=== PATIENT | female | born 1950 | race Two or more races ===

== ENCOUNTER 2016-08-25 17:25 | Emergency (ER) | payer MEDICARE, MEDICAID ==
[~2016-08-25] VITALS: Ht 167.6 cm; Wt 108.9 kg
[2016-08-25 18:12] LABS: Basophils # (auto) 0 uL; Basophils % (auto) 0.5 % (0.0-2.0); Eosinophils # (auto) 0.3 uL; Eosinophils % (auto) 4.3 % (0.0-7.0); Hematocrit 46.3 % (36.0-46.0); Hemoglobin 15.6 g/dL (12.2-16.2); Lymphocytes # (auto) 1.3 uL; Lymphocytes % (auto) 16.4 % (10.0-50.0); Mean Corpuscular Hemoglobin 30.4 pg (28.0-32.0); Mean Corpuscular Hgb Conc. 33.7 g/dL (32.0-36.0); Mean Corpuscular Volume 90.2 fL (80.0-100.0); Mean Platelet Volume 7.7 fL (7.4-10.4); Monocytes # (auto) 0.7 uL; Monocytes % (auto) 9.1 % (0.0-12.0); Neutrophils # (auto) 5.5 uL; Neutrophils % (auto) 69.7 % (37.0-80.0); Platelet Count (auto) 217 10^3/uL (140-450)
[2016-08-25 18:27] LABS: Partial Thromboplastin Time 28.2 sec (22.64-33.71)
[2016-08-25 18:36] LABS: Albumin 3.8 g/dL (3.4-5.0); Alkaline Phosphatase 135 U/L (45-117); Anion Gap 8 (5-15); Aspartate Aminotransferase 23 U/L (15-37); BUN/Creatinine Ratio 22.3; Bilirubin, Total 0.4 mg/dL (0.2-1.0); Blood Urea Nitrogen 21 mg/dL (7-18); Calcium 9.4 mg/dL (8.5-10.1); Carbon Dioxide 26 mmol/L (21-32); Chloride 108 mmol/L (98-107); GFR African American 77 mL/min; GFR Non-African American 64 mL/min; Glucose 183 mg/dL (74-106); Magnesium 2.3 mg/dL (1.6-2.6); Potassium 4.6 mmol/L (3.5-5.1); Sodium 142 mmol/L (136-145); Total Protein 7.9 g/dL (6.4-8.2)
[2016-08-25 18:50] LABS: INR 1.45 (0.9-1.15); Prothrombin Time 15.7 sec (9.37-12.3)
[2016-08-25] MEDS ORDERED: ALPRAZolam 0.5 MG TAB PO ONE (19:15)
[2016-08-25] MEDS ORDERED: cloNIDine HCL 0.1 MG TAB PO ONE (20:00)
[2016-08-25 20:04] VITALS: BP 174/74
== END 2016-08-25 20:44 | disposition home or self-care (01) ==
LOC: ER 17:25
DX: F41.0 Panic disorder [episodic paroxysmal anxiety] (principal); E66.01 Morbid (severe) obesity due to excess calories; J45.909 Unspecified asthma, uncomplicated; I12.9 Hypertensive chronic kidney disease with stage 1 through stage 4 chronic kidney disease, or unspecified chronic kidney disease; E11.9 Type 2 diabetes mellitus without complications; K21.9 Gastro-esophageal reflux disease without esophagitis; E78.5 Hyperlipidemia, unspecified; N18.9 Chronic kidney disease, unspecified; Z68.38 Body mass index [BMI] 38.0-38.9, adult; Z88.8 Allergy status to other drugs, medicaments and biological substances; Z90.710 Acquired absence of both cervix and uterus; Z90.89 Acquired absence of other organs
CPT/HCPCS: 36415; 71010; 80053; 83735; 84484; 85025; 85610; 85730; 93005; 94761

== ENCOUNTER 2016-08-27 09:12 | Emergency (ER) | payer MEDICARE, MEDICAID ==
[~2016-08-27] VITALS: Ht 172.7 cm; Wt 90.7 kg
[2016-08-27] MEDS ORDERED: HYDROcodone-ACET 5/325MG TAB PO ONE (10:00)
[2016-08-27] MEDS ORDERED: ASPirin 81 mg TAB PO ONE (10:00)
[2016-08-27 10:45] LABS: Albumin 3.3 g/dL (3.4-5.0); Anion Gap 10 (5-15); Aspartate Aminotransferase 15 U/L (15-37); BUN/Creatinine Ratio 24.1; Blood Urea Nitrogen 20 mg/dL (7-18); Calcium 8.3 mg/dL (8.5-10.1); Carbon Dioxide 24 mmol/L (21-32); Chloride 110 mmol/L (98-107); GFR African American 89 mL/min; GFR Non-African American 73 mL/min; Glucose 158 mg/dL (74-106); Potassium 4.3 mmol/L (3.5-5.1); Sodium 144 mmol/L (136-145)
[2016-08-27 10:50] LABS: Alkaline Phosphatase 110 U/L (45-117); Bilirubin, Total 0.4 mg/dL (0.2-1.0); Total Protein 6.6 g/dL (6.4-8.2)
[2016-08-27 10:53] LABS: Basophils # (auto) 0 uL; Basophils % (auto) 0.6 % (0.0-2.0); Eosinophils # (auto) 0.3 uL; Eosinophils % (auto) 4.2 % (0.0-7.0); Hematocrit 43.2 % (36.0-46.0); Hemoglobin 14.4 g/dL (12.2-16.2); Lymphocytes # (auto) 1.2 uL; Lymphocytes % (auto) 15.3 % (10.0-50.0); Mean Corpuscular Hemoglobin 30.3 pg (28.0-32.0); Mean Corpuscular Hgb Conc. 33.3 g/dL (32.0-36.0); Mean Corpuscular Volume 90.9 fL (80.0-100.0); Mean Platelet Volume 7.8 fL (7.4-10.4); Monocytes # (auto) 0.6 uL; Monocytes % (auto) 8.2 % (0.0-12.0); Neutrophils # (auto) 5.5 uL; Neutrophils % (auto) 71.7 % (37.0-80.0); Platelet Count (auto) 197 10^3/uL (140-450); Red Cell Distribution Width 14.1 % (11.6-16.0); White Blood Cell 7.6 10^3/uL (4.4-10.8)
[2016-08-27] MEDS ORDERED: LORazepam 0.5 MG TAB ONE (11:38)
[2016-08-27] MEDS ORDERED: LORazepam 0.5 MG TAB PO ONE (12:30)
[2016-08-27 13:18] VITALS: BP 143/88
== END 2016-08-27 13:20 | disposition home or self-care (01) ==
LOC: EDBD 09:12 → ER 09:19
DX: R07.89 Other chest pain (principal); I12.9 Hypertensive chronic kidney disease with stage 1 through stage 4 chronic kidney disease, or unspecified chronic kidney disease; N18.9 Chronic kidney disease, unspecified; E78.5 Hyperlipidemia, unspecified; M25.562 Pain in left knee; J45.909 Unspecified asthma, uncomplicated; Z90.49 Acquired absence of other specified parts of digestive tract; Z90.89 Acquired absence of other organs; Z85.43 Personal history of malignant neoplasm of ovary; Z88.6 Allergy status to analgesic agent
CPT/HCPCS: 36415; 71010; 73562; 80053; 84484; 85025; 93005; 94761

== ENCOUNTER 2016-09-17 01:14 | Emergency (ER) | payer MEDICARE, MEDICAID ==
[~2016-09-17] VITALS: Ht 167.6 cm; Wt 108.9 kg
[2016-09-17] MEDS ORDERED: LIDOCAINE 2%HCL (LOCAL ANESTH.) INJ 20ML MDV ONE (10:33)
[2016-09-17] MEDS ORDERED: TETANUS-DIPTH-ACEL PERTUSSIS 0.5ML SYRG IM ONE (11:15)
[2016-09-17] MEDS ORDERED: cefTRIAXone W LIDOCAINE 1 GM IM IM ONE (11:15)
[2016-09-17 11:30] VITALS: BP 155/92
== END 2016-09-17 11:09 | disposition home or self-care (01) ==
LOC: EDBD 01:14 → ER 01:21
DX: S01.312A Laceration without foreign body of left ear, initial encounter (principal); J45.909 Unspecified asthma, uncomplicated; E11.22 Type 2 diabetes mellitus with diabetic chronic kidney disease; I12.9 Hypertensive chronic kidney disease with stage 1 through stage 4 chronic kidney disease, or unspecified chronic kidney disease; N18.9 Chronic kidney disease, unspecified; K21.9 Gastro-esophageal reflux disease without esophagitis; E78.5 Hyperlipidemia, unspecified; Z86.711 Personal history of pulmonary embolism; W01.0XXA Fall on same level from slipping, tripping and stumbling without subsequent striking against object, initial encounter; Y93.89 Activity, other specified; Y99.8 Other external cause status; Y92.098 Other place in other non-institutional residence as the place of occurrence of the external cause; Z85.9 Personal history of malignant neoplasm, unspecified; Z23 Encounter for immunization
CPT/HCPCS: 12013; 36415; 70450; 72125; 80307; 80320; 90471; 90715; 96372; 99285; J0696

== ENCOUNTER 2016-09-30 09:38 | Emergency (ER) | payer MEDICARE, MEDICAID ==
[~2016-09-30] VITALS: Ht 167.6 cm; Wt 99.8 kg
[2016-09-30 09:47] VITALS: BP 181/84
[2016-09-30 10:31] LABS: Basophils # (auto) 0.1 uL; Basophils % (auto) 0.6 % (0.0-2.0); Eosinophils # (auto) 0.2 uL; Eosinophils % (auto) 2.7 % (0.0-7.0); Hemoglobin 14.9 g/dL (12.2-16.2); Lymphocytes % (auto) 10.5 % (10.0-50.0); Mean Corpuscular Hemoglobin 30.5 pg (28.0-32.0); Mean Corpuscular Hgb Conc. 33.7 g/dL (32.0-36.0); Mean Corpuscular Volume 90.4 fL (80.0-100.0); Mean Platelet Volume 7.7 fL (7.4-10.4); Monocytes # (auto) 0.5 uL; Monocytes % (auto) 5.6 % (0.0-12.0); Neutrophils # (auto) 7.3 uL; Neutrophils % (auto) 80.6 % (37.0-80.0); Platelet Count (auto) 206 10^3/uL (140-450); Red Cell Distribution Width 13.7 % (11.6-16.0); White Blood Cell 9.1 10^3/uL (4.4-10.8)
[2016-09-30 10:48] LABS: Albumin 3.6 g/dL (3.4-5.0); BUN/Creatinine Ratio 14.9; Calcium 9.2 mg/dL (8.5-10.1); Potassium 4.3 mmol/L (3.5-5.1)
[2016-09-30 10:53] LABS: Bilirubin, Total 0.7 mg/dL (0.2-1.0); Total Protein 7.1 g/dL (6.4-8.2)
== END 2016-09-30 14:20 | disposition left against medical advice (07) ==
LOC: EDBD 09:38 → EDSEX 09:38 → ER 09:40
DX: R11.2 Nausea with vomiting, unspecified (principal); Z53.21 Procedure and treatment not carried out due to patient leaving prior to being seen by health care provider
CPT/HCPCS: 36415; 80053; 85025; 93005

== ENCOUNTER 2016-10-12 02:23 | Inpatient (IN) | payer MEDICARE, MEDICAID ==
[~2016-10-12] VITALS: Ht 172.7 cm; Wt 100.6 kg
[2016-10-12] VITALS (61 sets, daily range): BP systolic 56–134; BP diastolic 32–86
[2016-10-12] MEDS ORDERED: NOREPINEPHRINE BITARTRATE 250 ML IV ONE (02:54)
[2016-10-12] MEDS ORDERED: AMIODARONE HCL (50 MG/ ML) 3 ML VIAL IV ONE (02:56)
[2016-10-12] MEDS ORDERED: THIAMINE HCL 100 MG/ML 2ML VIAL IV ONE (03:00)
[2016-10-12] MEDS ORDERED: MIDAZOLAM HCL 1MG/1ML-2 ML VIAL IV ONE (03:00)
[2016-10-12] MEDS: NOREPINEPHRINE BITARTRATE 250 ML IV SCH ×2 (03:00→21:43)
[2016-10-12] MEDS ORDERED: ETOMIDATE (2MG/ML) 20ML VIAL IV ONE ×2 (03:00→03:02)
[2016-10-12] MEDS ORDERED: ASPirin 81 mg TAB ONE (03:00)
[2016-10-12] MEDS ORDERED: AMIODARONE HCL 150 MG in D5W 5% 100 ML IV ONE (03:00)
[2016-10-12] MEDS ORDERED: MIDAZOLAM HCL 5 MG/ML-1ML VIAL ONE (03:01)
[2016-10-12 03:08] LABS: Basophils # (auto) 0 uL; Basophils % (auto) 0.5 % (0.0-2.0); Eosinophils # (auto) 0.2 uL; Eosinophils % (auto) 2.1 % (0.0-7.0); Hematocrit 43.9 % (36.0-46.0); Hemoglobin 14.4 g/dL (12.2-16.2); Lymphocytes # (auto) 2.8 uL; Lymphocytes % (auto) 25.9 % (10.0-50.0); Mean Corpuscular Hemoglobin 30.5 pg (28.0-32.0); Mean Corpuscular Hgb Conc. 32.9 g/dL (32.0-36.0); Mean Corpuscular Volume 92.7 fL (80.0-100.0); Mean Platelet Volume 8.2 fL (7.4-10.4); Monocytes # (auto) 0.8 uL; Monocytes % (auto) 7.4 % (0.0-12.0); Neutrophils % (auto) 64.1 % (37.0-80.0); Platelet Count (auto) 154 10^3/uL (140-450); White Blood Cell 10.9 10^3/uL (4.4-10.8)
[2016-10-12] MEDS ORDERED: ENOXAPARIN SOD 100 MG/1 ML SYRINGE SC ONE (03:15)
[2016-10-12 03:18] LABS: Albumin 3.2 g/dL (3.4-5.0); BUN/Creatinine Ratio 7.5; Calcium 8.9 mg/dL (8.5-10.1); Magnesium 2.5 mg/dL (1.6-2.6); Potassium 3.9 mmol/L (3.5-5.1)
[2016-10-12 03:23] LABS: Bilirubin, Total 0.9 mg/dL (0.2-1.0); Total Protein 6.5 g/dL (6.4-8.2)
[2016-10-12] MEDS ORDERED: MIDAZOLAM DRIP 100 mg/100mL NS 100 ML IV ONE (03:25)
[2016-10-12 03:27] LABS: INR 1.05 (0.9-1.15); Partial Thromboplastin Time 24.6 sec (22.64-33.71); Prothrombin Time 11.4 sec (9.37-12.3)
[2016-10-12 03:34] LABS: Allen Test Yes; Base Excess -14.1 mmol/L (-2.0-2.0); Blood 02Sat 99.1 % (96-100); Blood COHb 0.3 % (0.5-1.5); Blood MetHb 0.3 % (0.0-1.5); HCO3 13.1 mmol/L (22-26.0); HHb 0.9 % (0.0-5.0); MODE VENT - A/C; O2Hb 98.5 % (94.0-97.0); PCO2 34.9 mmHg (35.0-45.0); PCO2(T) 34.9 mmHg (35.0-45.0); PO2 416.8 mmHg (80.0-100.0); PO2(T) 416.8 mmHg (80.0-100.0); Sample Type Arterial; pH 7.191 (7.350-7.450)
[2016-10-12] MEDS ORDERED: PROPOFOL 100 ML IV ONE (03:41)
[2016-10-12 03:48] LABS: Temperature: 22.3 C (20.0-25.0)
[2016-10-12] MEDS: PROPOFOL 100 ML IV SCH ×3 (03:58→18:35)
[2016-10-12] MEDS: MIDAZOLAM DRIP 100 mg/100mL NS 100 ML IV SCH ×2 (03:59→08:34)
[2016-10-12 05:22] LABS: Urine Bilirubin Negative (Negative); Urine Blood Negative /uL (Negative); Urine Color Yellow (Yellow); Urine Glucose Normal (Normal); Urine Mucus FEW (None Seen); Urine Nitrite Negative (Negative); Urine RBC 1 /hpf (0 - 4); Urine Squamous Epithelial Cell FEW /hpf (<5); Urine Urobilinogen Normal (Negative)
[2016-10-12 05:27] LABS: Urine Ketone 2+ (Negative)
[2016-10-12] MEDS ORDERED: SODIUM CHLORIDE 0.9% 1,000 ML IV ONE ×2 (06:00)
[2016-10-12] MEDS ORDERED: ONDANSETRON HCL 4 MG/2 ML VIAL IV PRN (06:45)
[2016-10-12] MEDS ORDERED: MORPHINE SULF INJ 2 MG/ML SYRINGE 1ML IV PRN ×2 (06:45)
[2016-10-12] MEDS ORDERED: DEXTROSE (50%) 50ML SYRG IV PRN (06:45)
[2016-10-12] MEDS ORDERED: NITROGLYCERIN 0.4 MG SL TAB SL PRN (06:45)
[2016-10-12] MEDS ORDERED: AMIODARONE HCL 900 MG in DEXTROSE 500 ML IV SCH ×2 (06:48→12:48)
[2016-10-12 06:50] LABS: Allen Test Modified; Base Excess -10.5 mmol/L (-2.0-2.0); Blood 02Sat 96.2 % (96-100); Blood COHb 0.1 % (0.5-1.5); Blood MetHb 0.3 % (0.0-1.5); HCO3 15.3 mmol/L (22-26.0); HHb 3.8 % (0.0-5.0); MODE VENT - A/C; O2Hb 95.8 % (94.0-97.0); PCO2 34.1 mmHg (35.0-45.0); PCO2(T) 34.1 mmHg (35.0-45.0); PIP 21; PO2 101.1 mmHg (80.0-100.0); PO2(T) 101.1 mmHg (80.0-100.0); Sample Type Arterial
[2016-10-12] MEDS: SODIUM CHLORIDE 0.9% 1,000 ML IV SCH ×2 (07:00→18:35)
[2016-10-12] MEDS: PANTOPRAZOLE SODIUM 40 MG/10 ML VIAL IV SCH (10:21)
[2016-10-12] MEDS ORDERED: WARF5TAB71 PO (11:52)
[2016-10-12] MEDS ORDERED: DILT120C65 PO (11:52)
[2016-10-12] MEDS ORDERED: PRO10T GT (11:52)
[2016-10-12] MEDS ORDERED: TRAM50TA2 PO (11:52)
[2016-10-12] MEDS ORDERED: METF-312 PO (11:58)
[2016-10-12] MEDS ORDERED: OXYB5SYP4 PO (11:58)
[2016-10-12] MEDS ORDERED: ZOLP10TA6 PO (11:58)
[2016-10-12] MEDS ORDERED: OXYB10GE TD (11:58)
[2016-10-12] MEDS ORDERED: GABA-339 PO (11:58)
[2016-10-12] MEDS ORDERED: ATOR20TA50 PO (11:58)
[2016-10-12] MEDS ORDERED: ALPR0.5T7 PO (11:58)
[2016-10-12] MEDS ORDERED: PAR20T PO (11:58)
[2016-10-12] MEDS: InsuLIN REG 1unit/0.01ml Soln (100units/ml) SC SCH ×3 (12:00→23:37)
[2016-10-12] MEDS: ACCU-CHEK COMFORT CURVE STRIP VI SCH ×3 (12:00→23:37)
[2016-10-12] MEDS: VASOPRESSIN 50 UNITS in SODIUM CHL 0.9% 247.5 ML IV SCH (12:15)
[2016-10-12] MEDS ORDERED: FUROSEMIDE 40 MG/4 ML VIAL IV ONE (13:45)
[2016-10-12] MEDS ORDERED: LIDOCAINE 1% HCL (LOCAL ANESTH.) INJ 20ML MDV ID ONE (14:15)
[2016-10-12] MEDS: ENOXAPARIN SOD 120 MG/0.8 ML SYRINGE SC SCH (14:32)
[2016-10-12] MEDS ORDERED: VITAMINS A & D (TOPICAL) OINT 5GM TOP ONE (15:30)
[2016-10-12] MEDS: FUROSEMIDE 40 MG/4 ML VIAL IV SCH (18:12)
[2016-10-12] MEDS: SODIUM CHLOR 0.9% PF (SALINE LOCK) 10ML VIAL IV SCH (21:45)
[2016-10-12 23:51] LABS: Potassium 4.4 mmol/L (3.5-5.1)
[2016-10-13] VITALS (105 sets, daily range): BP systolic 89–135; BP diastolic 48–86
[2016-10-13] MEDS: VASOPRESSIN 50 UNITS in SODIUM CHL 0.9% 247.5 ML IV SCH (00:41)
[2016-10-13] MEDS: ENOXAPARIN SOD 120 MG/0.8 ML SYRINGE SC SCH ×2 (03:12→14:20)
[2016-10-13] MEDS: PROPOFOL 100 ML IV SCH ×2 (03:14→09:24)
[2016-10-13 04:11] LABS: Basophils # (auto) 0 uL; Basophils % (auto) 0.3 % (0.0-2.0); Eosinophils # (auto) 0 uL; Eosinophils % (auto) 0.1 % (0.0-7.0); Hematocrit 43.8 % (36.0-46.0); Hemoglobin 14.6 g/dL (12.2-16.2); Lymphocytes # (auto) 1.3 uL; Lymphocytes % (auto) 11.6 % (10.0-50.0); Mean Corpuscular Hemoglobin 30.5 pg (28.0-32.0); Mean Corpuscular Hgb Conc. 33.5 g/dL (32.0-36.0); Mean Corpuscular Volume 91.1 fL (80.0-100.0); Mean Platelet Volume 8.5 fL (7.4-10.4); Monocytes # (auto) 1.1 uL; Monocytes % (auto) 9.9 % (0.0-12.0); Neutrophils # (auto) 8.9 uL; Neutrophils % (auto) 78.1 % (37.0-80.0); Platelet Count (auto) 115 10^3/uL (140-450); Red Cell Distribution Width 13.8 % (11.6-16.0); White Blood Cell 11.4 10^3/uL (4.4-10.8)
[2016-10-13 04:44] LABS: Albumin 2.9 g/dL (3.4-5.0); BUN/Creatinine Ratio 10.5; Calcium 8.2 mg/dL (8.5-10.1)
[2016-10-13 04:58] LABS: Bilirubin, Total 0.6 mg/dL (0.2-1.0); Total Protein 6.2 g/dL (6.4-8.2)
[2016-10-13] MEDS: FUROSEMIDE 40 MG/4 ML VIAL IV SCH ×2 (05:54→17:37)
[2016-10-13] MEDS: ACCU-CHEK COMFORT CURVE STRIP VI SCH ×3 (05:57→17:36)
[2016-10-13] MEDS: InsuLIN REG 1unit/0.01ml Soln (100units/ml) SC SCH ×3 (05:58→17:36)
[2016-10-13 07:15] LABS: Allen Test Yes; Base Excess -6.5 mmol/L (-2.0-2.0); Blood 02Sat 95.1 % (96-100); Blood COHb 0.5 % (0.5-1.5); Blood MetHb 0.3 % (0.0-1.5); HCO3 17.2 mmol/L (22-26.0); HHb 4.9 % (0.0-5.0); MODE VENT - A/C; O2Hb 94.3 % (94.0-97.0); PCO2 29.7 mmHg (35.0-45.0); PCO2(T) 29.7 mmHg (35.0-45.0); PO2 82.5 mmHg (80.0-100.0); PO2(T) 82.5 mmHg (80.0-100.0); Sample Type Arterial
[2016-10-13] MEDS: SODIUM CHLORIDE 0.9% 1,000 ML IV SCH ×2 (09:09→20:59)
[2016-10-13] MEDS: SODIUM CHLOR 0.9% PF (SALINE LOCK) 10ML VIAL IV SCH ×2 (09:24→22:30)
[2016-10-13] MEDS: PANTOPRAZOLE SODIUM 40 MG/10 ML VIAL IV SCH (09:24)
[2016-10-13] MEDS: AMIODARONE HCL 200 MG TAB PO SCH ×2 (11:31→22:30)
[2016-10-14] VITALS (104 sets, daily range): BP systolic 85–141; BP diastolic 37–84
[2016-10-14] MEDS: ACCU-CHEK COMFORT CURVE STRIP VI SCH ×5 (00:21→23:41)
[2016-10-14] MEDS: PROPOFOL 100 ML IV SCH ×2 (02:11→21:01)
[2016-10-14] MEDS: NOREPINEPHRINE BITARTRATE 250 ML IV SCH (03:00)
[2016-10-14] MEDS: ENOXAPARIN SOD 120 MG/0.8 ML SYRINGE SC SCH ×2 (03:11→13:36)
[2016-10-14] MEDS: MIDAZOLAM DRIP 100 mg/100mL NS 100 ML IV SCH (03:33)
[2016-10-14 04:36] LABS: Basophils # (auto) 0 uL; Basophils % (auto) 0.2 % (0.0-2.0); Eosinophils # (auto) 0 uL; Eosinophils % (auto) 0.3 % (0.0-7.0); Hematocrit 39.3 % (36.0-46.0); Hemoglobin 13.3 g/dL (12.2-16.2); Mean Corpuscular Hemoglobin 30.8 pg (28.0-32.0); Mean Corpuscular Hgb Conc. 33.8 g/dL (32.0-36.0); Mean Corpuscular Volume 91.2 fL (80.0-100.0); Mean Platelet Volume 8.5 fL (7.4-10.4); Monocytes # (auto) 0.9 uL; Monocytes % (auto) 6.8 % (0.0-12.0); Neutrophils # (auto) 11.9 uL; Neutrophils % (auto) 85.7 % (37.0-80.0); Platelet Count (auto) 127 10^3/uL (140-450); Red Cell Distribution Width 13.5 % (11.6-16.0); White Blood Cell 13.8 10^3/uL (4.4-10.8)
[2016-10-14 04:49] LABS: BUN/Creatinine Ratio 13.8; Calcium 7.7 mg/dL (8.5-10.1)
[2016-10-14] MEDS: InsuLIN REG 1unit/0.01ml Soln (100units/ml) SC SCH ×5 (05:29→23:43)
[2016-10-14] MEDS: FUROSEMIDE 40 MG/4 ML VIAL IV SCH ×2 (05:30→18:18)
[2016-10-14] MEDS: POTASSIUM CHL 20MEQ/100ML 100 ML IV SCH ×3 (06:32→13:02)
[2016-10-14] MEDS ORDERED: DIGOXIN (250MCG/ML) 2 ML AMPULE IV ONE ×2 (07:15→12:30)
[2016-10-14 07:17] LABS: INR 1.15 (0.9-1.15); Partial Thromboplastin Time 33.4 sec (22.64-33.71)
[2016-10-14 07:20] LABS: Prothrombin Time 12.5 sec (9.37-12.3)
[2016-10-14] MEDS ORDERED: METOPROLOL TARTRATE 1MG/1ML-5ML VIAL IV ONE (07:45)
[2016-10-14 09:06] LABS: Allen Test Yes; Base Excess -2.5 mmol/L (-2.0-2.0); Blood COHb 0.5 % (0.5-1.5); Blood MetHb 0.3 % (0.0-1.5); HCO3 20.3 mmol/L (22-26.0); IE RATIO 1.3.9; MODE VENT - A/C; O2Hb 95.2 % (94.0-97.0); PCO2 30.2 mmHg (35.0-45.0); PCO2(T) 30.2 mmHg (35.0-45.0); PIP 27; PO2 85.8 mmHg (80.0-100.0); PO2(T) 85.8 mmHg (80.0-100.0); Sample Type Arterial; Spont Vt 494; pH 7.446 (7.350-7.450)
[2016-10-14] MEDS: PANTOPRAZOLE SODIUM 40 MG/10 ML VIAL IV SCH (09:18)
[2016-10-14] MEDS: SODIUM CHLOR 0.9% PF (SALINE LOCK) 10ML VIAL IV SCH ×2 (09:18→22:12)
[2016-10-14] MEDS: AMIODARONE HCL 200 MG TAB PO SCH ×2 (09:19→22:00)
[2016-10-14] MEDS: VASOPRESSIN 50 UNITS in SODIUM CHL 0.9% 247.5 ML IV SCH (12:15)
[2016-10-14] MEDS: SODIUM CHLORIDE 0.9% 1,000 ML IV SCH ×2 (13:02→23:48)
[2016-10-14] MEDS: methylPREDNISolone SOD SUCC 125 MG/2 ML VL IV SCH ×2 (18:19→23:43)
[2016-10-14] MEDS: ALBUTEROL SULF 2.5 MG/0.5ML(0.5%) NEB SOLN NEB SCH (18:22)
[2016-10-14] MEDS: BUDESONIDE (INHALATION) 0.5 MG/2 ML NEB NEB SCH (18:22)
[2016-10-14] MEDS: DOXYCYCLINE HYC 100MG/250ML 250 ML IV SCH (19:35)
[2016-10-15] VITALS (63 sets, daily range): BP systolic 111–165; BP diastolic 40–98
[2016-10-15] MEDS: NOREPINEPHRINE BITARTRATE 250 ML IV SCH (03:00)
[2016-10-15] MEDS: ENOXAPARIN SOD 120 MG/0.8 ML SYRINGE SC SCH ×2 (03:17→16:18)
[2016-10-15] MEDS: MIDAZOLAM DRIP 100 mg/100mL NS 100 ML IV SCH ×2 (03:33→09:56)
[2016-10-15 03:45] LABS: Hematocrit 39.3 % (36.0-46.0); Hemoglobin 13.2 g/dL (12.2-16.2); Mean Corpuscular Hemoglobin 30.7 pg (28.0-32.0); Mean Corpuscular Hgb Conc. 33.6 g/dL (32.0-36.0); Mean Corpuscular Volume 91.3 fL (80.0-100.0); Mean Platelet Volume 8.6 fL (7.4-10.4); Platelet Count (auto) 132 10^3/uL (140-450); Red Cell Distribution Width 13.6 % (11.6-16.0); SUSPECT VIEW TRANSMISSION; White Blood Cell 15.5 10^3/uL (4.4-10.8)
[2016-10-15 03:51] LABS: Metamyelocytes % 0; Myelocytes % 0; Promyelocytes % 0; Reactive Lymphocytes 0
[2016-10-15 04:02] LABS: Potassium 3.4 mmol/L (3.5-5.1)
[2016-10-15 04:04] LABS: BUN/Creatinine Ratio 17.9
[2016-10-15 04:32] LABS: Hypersegmented Neutrophils Present; Platelet Estimate Decreased
[2016-10-15 04:33] LABS: RBC Morphology Normal
[2016-10-15] MEDS: methylPREDNISolone SOD SUCC 125 MG/2 ML VL IV SCH ×3 (05:43→18:46)
[2016-10-15] MEDS: ACCU-CHEK COMFORT CURVE STRIP VI SCH ×3 (05:43→18:46)
[2016-10-15] MEDS: InsuLIN REG 1unit/0.01ml Soln (100units/ml) SC SCH ×3 (05:43→18:46)
[2016-10-15] MEDS: PROPOFOL 100 ML IV SCH (05:55)
[2016-10-15] MEDS: FUROSEMIDE 40 MG/4 ML VIAL IV SCH ×2 (05:55→18:46)
[2016-10-15] MEDS: DOXYCYCLINE HYC 100MG/250ML 250 ML IV SCH ×2 (06:05→18:46)
[2016-10-15] MEDS: ALBUTEROL SULF 2.5 MG/0.5ML(0.5%) NEB SOLN NEB SCH ×4 (06:21→18:43)
[2016-10-15 06:33] LABS: Base Excess -1.9 mmol/L (-2.0-2.0); Blood 02Sat 96.2 % (96-100); Blood COHb 0.7 % (0.5-1.5); Blood MetHb 0.3 % (0.0-1.5); HHb 3.8 % (0.0-5.0); MODE VENT - A/C; O2Hb 95.2 % (94.0-97.0); PCO2 35.1 mmHg (35.0-45.0); PCO2(T) 35.1 mmHg (35.0-45.0); PO2 85.9 mmHg (80.0-100.0); PO2(T) 85.9 mmHg (80.0-100.0); Sample Type Arterial; pH 7.415 (7.350-7.450)
[2016-10-15] MEDS: AMIODARONE HCL 200 MG TAB PO SCH ×2 (10:00→22:00)
[2016-10-15] MEDS: DIGOXIN (250MCG/ML) 2 ML AMPULE IV SCH (10:00)
[2016-10-15] MEDS: BUDESONIDE (INHALATION) 0.5 MG/2 ML NEB NEB SCH ×2 (10:19→18:43)
[2016-10-15] MEDS: SODIUM CHLOR 0.9% PF (SALINE LOCK) 10ML VIAL IV SCH ×2 (10:21→21:37)
[2016-10-15] MEDS: PANTOPRAZOLE SODIUM 40 MG/10 ML VIAL IV SCH (10:21)
[2016-10-15 11:17] LABS: Base Excess -0.9 mmol/L (-2.0-2.0); Blood 02Sat 96.8 % (96-100); Blood COHb 0.8 % (0.5-1.5); Blood MetHb 0.4 % (0.0-1.5); HCO3 22.1 mmol/L (22-26.0); HHb 3.2 % (0.0-5.0); MODE VENT - CPAP; O2Hb 95.6 % (94.0-97.0); PCO2 32.2 mmHg (35.0-45.0); PCO2(T) 32.2 mmHg (35.0-45.0); PO2 88.6 mmHg (80.0-100.0); PO2(T) 88.6 mmHg (80.0-100.0); Pressure Support 8; Sample Type Arterial; Spont Vt 460; pH 7.455 (7.350-7.450)
[2016-10-15] MEDS: VASOPRESSIN 50 UNITS in SODIUM CHL 0.9% 247.5 ML IV SCH (12:15)
[2016-10-15] MEDS: SODIUM CHLORIDE 0.9% 1,000 ML IV SCH (13:39)
[2016-10-15] MEDS: LORazepam 0.5 MG TAB PO PRN (16:36)
[2016-10-15 20:40] LABS: BUN/Creatinine Ratio 23.1; Calcium 7.9 mg/dL (8.5-10.1)
[2016-10-15 20:45] LABS: Potassium 2.8 mmol/L (3.5-5.1)
[2016-10-16] VITALS (11 sets, daily range): BP systolic 118–139; BP diastolic 56–86
[2016-10-16] MEDS: ACCU-CHEK COMFORT CURVE STRIP VI SCH ×4 (00:08→17:59)
[2016-10-16] MEDS: methylPREDNISolone SOD SUCC 125 MG/2 ML VL IV SCH ×2 (00:08→06:04)
[2016-10-16] MEDS: InsuLIN REG 1unit/0.01ml Soln (100units/ml) SC SCH ×4 (00:09→18:00)
[2016-10-16] MEDS: LORazepam 0.5 MG TAB PO PRN ×3 (00:15→23:56)
[2016-10-16] MEDS ORDERED: POTASSIUM CHL 20 Meq TABLET PO ONE (00:45)
[2016-10-16] MEDS: ENOXAPARIN SOD 120 MG/0.8 ML SYRINGE SC SCH (03:45)
[2016-10-16] MEDS ORDERED: LABETALOL HCL 5 MG/ML 4ML SYRINGE IV ONE (04:15)
[2016-10-16 04:20] LABS: Hematocrit 39.2 % (36.0-46.0); Hemoglobin 13.2 g/dL (12.2-16.2); Mean Corpuscular Hemoglobin 30.4 pg (28.0-32.0); Mean Corpuscular Hgb Conc. 33.8 g/dL (32.0-36.0); Mean Corpuscular Volume 90.1 fL (80.0-100.0); Mean Platelet Volume 8.4 fL (7.4-10.4); Platelet Count (auto) 163 10^3/uL (140-450); Red Cell Distribution Width 13.8 % (11.6-16.0); SUSPECT VIEW TRANSMISSION; White Blood Cell 16.9 10^3/uL (4.4-10.8)
[2016-10-16 04:40] LABS: Metamyelocytes % 0; Myelocytes % 0; Promyelocytes % 0; Reactive Lymphocytes 0
[2016-10-16 04:55] LABS: BUN/Creatinine Ratio 24.3; Calcium 8.3 mg/dL (8.5-10.1); Magnesium 1.7 mg/dL (1.6-2.6); Potassium 3.5 mmol/L (3.5-5.1)
[2016-10-16 05:11] LABS: Hypersegmented Neutrophils Present; Platelet Estimate Adequate
[2016-10-16 05:12] LABS: RBC Morphology Normal
[2016-10-16] MEDS: FUROSEMIDE 40 MG/4 ML VIAL IV SCH (06:04)
[2016-10-16] MEDS: DOXYCYCLINE HYC 100MG/250ML 250 ML IV SCH (06:04)
[2016-10-16] MEDS: BUDESONIDE (INHALATION) 0.5 MG/2 ML NEB NEB SCH ×2 (06:06→19:35)
[2016-10-16] MEDS: ALBUTEROL SULF 2.5 MG/0.5ML(0.5%) NEB SOLN NEB SCH ×6 (06:06→23:14)
[2016-10-16] MEDS: SODIUM CHLOR 0.9% PF (SALINE LOCK) 10ML VIAL IV SCH ×2 (10:00→21:39)
[2016-10-16] MEDS ORDERED: DOXYCYCLINE 100 MG TAB/CAP PO ONE (10:45)
[2016-10-16] MEDS ORDERED: predniSONE 20 MG TAB PO ONE (10:45)
[2016-10-16] MEDS: AMIODARONE HCL 200 MG TAB PO SCH ×2 (10:47→21:39)
[2016-10-16] MEDS: DIGOXIN (250MCG/ML) 2 ML AMPULE IV SCH (10:48)
[2016-10-16] MEDS ORDERED: ALBUTEROL SULF 2.5 MG/0.5ML(0.5%) NEB SOLN NEB ONE (14:45)
[2016-10-16] MEDS: DOXYCYCLINE 100 MG TAB/CAP PO SCH (21:39)
[2016-10-16] MEDS: ENOXAPARIN SOD 100 MG/1 ML SYRINGE SC SCH (21:39)
[2016-10-16] MEDS ORDERED: DOXYCYCLINE 100 MG TAB/CAP PO SCH (22:00)
[2016-10-17] MEDS: InsuLIN REG 1unit/0.01ml Soln (100units/ml) SC SCH ×4 (00:02→18:08)
[2016-10-17] MEDS: ACCU-CHEK COMFORT CURVE STRIP VI SCH ×4 (00:02→18:08)
[2016-10-17 05:00] VITALS: BP 131/67
[2016-10-17] MEDS: ACETAMINOPHEN 325 MG TAB PO PRN (05:46)
[2016-10-17] MEDS: ALBUTEROL SULF 2.5 MG/0.5ML(0.5%) NEB SOLN NEB SCH ×6 (06:00→18:39)
[2016-10-17] MEDS: BUDESONIDE (INHALATION) 0.5 MG/2 ML NEB NEB SCH ×2 (06:31→18:39)
[2016-10-17 09:00] VITALS: BP 116/52
[2016-10-17] MEDS: DIGOXIN (250MCG/ML) 2 ML AMPULE IV SCH (10:00)
[2016-10-17] MEDS ORDERED: predniSONE 20 MG TAB PO SCH (10:00)
[2016-10-17] MEDS: AMIODARONE HCL 200 MG TAB PO SCH ×2 (10:00→21:40)
[2016-10-17] MEDS: predniSONE 20 MG TAB PO SCH (10:07)
[2016-10-17] MEDS: DOXYCYCLINE 100 MG TAB/CAP PO SCH ×2 (10:07→21:39)
[2016-10-17] MEDS: SODIUM CHLOR 0.9% PF (SALINE LOCK) 10ML VIAL IV SCH ×2 (10:07→21:39)
[2016-10-17] MEDS: ENOXAPARIN SOD 100 MG/1 ML SYRINGE SC SCH ×2 (10:07→21:40)
[2016-10-17 13:00] VITALS: BP 144/73
[2016-10-17 17:00] VITALS: BP 155/71
[2016-10-17] MEDS: LORazepam 0.5 MG TAB PO PRN (22:31)
[2016-10-18] MEDS: ACCU-CHEK COMFORT CURVE STRIP VI SCH ×5 (00:03→23:59)
[2016-10-18] MEDS: InsuLIN REG 1unit/0.01ml Soln (100units/ml) SC SCH ×5 (00:03→23:59)
[2016-10-18] MEDS: ALBUTEROL SULF 2.5 MG/0.5ML(0.5%) NEB SOLN NEB SCH ×5 (00:13→18:50)
[2016-10-18] MEDS: ACETAMINOPHEN 325 MG TAB PO PRN (01:05)
[2016-10-18 05:00] VITALS: BP 117/65
[2016-10-18] MEDS: BUDESONIDE (INHALATION) 0.5 MG/2 ML NEB NEB SCH ×2 (06:24→18:46)
[2016-10-18] MEDS: LORazepam 0.5 MG TAB PO PRN ×2 (06:31→18:23)
[2016-10-18] MEDS: AMIODARONE HCL 200 MG TAB PO SCH ×2 (10:08→21:18)
[2016-10-18] MEDS: SODIUM CHLOR 0.9% PF (SALINE LOCK) 10ML VIAL IV SCH ×2 (10:09→21:19)
[2016-10-18] MEDS: predniSONE 20 MG TAB PO SCH (10:09)
[2016-10-18] MEDS: DOXYCYCLINE 100 MG TAB/CAP PO SCH ×2 (10:09→21:17)
[2016-10-18] MEDS: DIGOXIN (250MCG/ML) 2 ML AMPULE IV SCH (10:10)
[2016-10-18] MEDS: ENOXAPARIN SOD 100 MG/1 ML SYRINGE SC SCH ×2 (10:10→21:19)
[2016-10-18] MEDS ORDERED: IOHEXOL 350 MG/ML 100ML IJ ONE (12:02)
[2016-10-18 13:38] LABS: Basophils # (auto) 0 uL; Basophils % (auto) 0.4 % (0.0-2.0); Eosinophils # (auto) 0 uL; Eosinophils % (auto) 0.2 % (0.0-7.0); Hematocrit 40.8 % (36.0-46.0); Hemoglobin 13.7 g/dL (12.2-16.2); Lymphocytes # (auto) 0.5 uL; Mean Corpuscular Hemoglobin 29.8 pg (28.0-32.0); Mean Corpuscular Hgb Conc. 33.7 g/dL (32.0-36.0); Mean Corpuscular Volume 88.5 fL (80.0-100.0); Mean Platelet Volume 7.8 fL (7.4-10.4); Monocytes # (auto) 0.5 uL; Neutrophils # (auto) 8.9 uL; Neutrophils % (auto) 89.4 % (37.0-80.0); Platelet Count (auto) 166 10^3/uL (140-450); Red Cell Distribution Width 13.6 % (11.6-16.0); White Blood Cell 9.9 10^3/uL (4.4-10.8)
[2016-10-18 13:59] VITALS: BP 146/79
[2016-10-18 17:25] VITALS: BP 146/79
[2016-10-18 18:20] VITALS: BP 141/94
[2016-10-18 20:58] VITALS: BP 138/84
[2016-10-18] MEDS: APIXABAN 5 MG TAB PO SCH (21:18)
[2016-10-19 05:31] VITALS: BP 148/65
[2016-10-19] MEDS: InsuLIN REG 1unit/0.01ml Soln (100units/ml) SC SCH ×3 (06:00→17:26)
[2016-10-19] MEDS: BUDESONIDE (INHALATION) 0.5 MG/2 ML NEB NEB SCH ×2 (06:13→19:03)
[2016-10-19] MEDS: ALBUTEROL SULF 2.5 MG/0.5ML(0.5%) NEB SOLN NEB SCH ×4 (06:13→19:03)
[2016-10-19] MEDS: ACCU-CHEK COMFORT CURVE STRIP VI SCH ×3 (06:34→17:26)
[2016-10-19 08:30] VITALS: BP 146/109
[2016-10-19] MEDS: ENOXAPARIN SOD 100 MG/1 ML SYRINGE SC SCH ×2 (09:37→22:11)
[2016-10-19] MEDS: APIXABAN 5 MG TAB PO SCH ×2 (09:48→22:11)
[2016-10-19] MEDS: DOXYCYCLINE 100 MG TAB/CAP PO SCH ×2 (09:48→22:10)
[2016-10-19] MEDS: LORazepam 0.5 MG TAB PO PRN (09:49)
[2016-10-19] MEDS: AMIODARONE HCL 200 MG TAB PO SCH ×2 (09:49→22:10)
[2016-10-19] MEDS: predniSONE 20 MG TAB PO SCH (09:49)
[2016-10-19] MEDS: DIGOXIN (250MCG/ML) 2 ML AMPULE IV SCH (09:50)
[2016-10-19] MEDS: SODIUM CHLOR 0.9% PF (SALINE LOCK) 10ML VIAL IV SCH ×2 (09:50→22:11)
[2016-10-19 13:48] VITALS: BP 155/86
[2016-10-19 17:42] VITALS: BP 137/73
[2016-10-19] MEDS: Boost Glucose Control 8 Ounces PO SCH (18:09)
[2016-10-19 22:38] VITALS: BP 119/58
[2016-10-20] MEDS: ACCU-CHEK COMFORT CURVE STRIP VI SCH ×4 (00:25→17:47)
[2016-10-20] MEDS: InsuLIN REG 1unit/0.01ml Soln (100units/ml) SC SCH ×4 (00:25→18:00)
[2016-10-20 04:39] LABS: Urine Bilirubin Negative (Negative); Urine Color Brown (Yellow); Urine Mucus FEW (None Seen); Urine Nitrite Negative (Negative); Urine RBC 1387 /hpf (0 - 4); Urine Squamous Epithelial Cell FEW /hpf (<5); Urine Urobilinogen Normal (Negative)
[2016-10-20 04:40] LABS: Urine Blood 3+ /uL (Negative); Urine Glucose 1+ mg/dL (Normal); Urine Ketone 1+ (Negative)
[2016-10-20 05:36] VITALS: BP 111/62
[2016-10-20] MEDS: ALBUTEROL SULF 2.5 MG/0.5ML(0.5%) NEB SOLN NEB SCH ×4 (06:00→18:44)
[2016-10-20] MEDS: BUDESONIDE (INHALATION) 0.5 MG/2 ML NEB NEB SCH ×2 (06:01→18:44)
[2016-10-20] MEDS: Boost Glucose Control 8 Ounces PO SCH ×2 (08:26→17:47)
[2016-10-20 09:00] VITALS: BP 120/75
[2016-10-20] MEDS: DIGOXIN (250MCG/ML) 2 ML AMPULE IV SCH (10:00)
[2016-10-20] MEDS: ENOXAPARIN SOD 100 MG/1 ML SYRINGE SC SCH ×2 (10:00→22:36)
[2016-10-20] MEDS: SODIUM CHLOR 0.9% PF (SALINE LOCK) 10ML VIAL IV SCH ×2 (10:00→22:35)
[2016-10-20] MEDS: LORazepam 0.5 MG TAB PO PRN ×2 (10:50→20:01)
[2016-10-20] MEDS: AMIODARONE HCL 200 MG TAB PO SCH ×2 (10:50→22:35)
[2016-10-20] MEDS: predniSONE 20 MG TAB PO SCH (10:50)
[2016-10-20] MEDS: DOXYCYCLINE 100 MG TAB/CAP PO SCH ×2 (10:51→22:36)
[2016-10-20] MEDS: APIXABAN 5 MG TAB PO SCH ×2 (10:51→22:36)
[2016-10-20 13:00] VITALS: BP 115/68
[2016-10-20 17:00] VITALS: BP 114/62
[2016-10-20 21:11] VITALS: BP 115/57
[2016-10-20] MEDS: METOPROLOL TARTRATE 50 MG TAB PO SCH (22:36)
[2016-10-21] MEDS: ACCU-CHEK COMFORT CURVE STRIP VI SCH ×4 (00:18→17:57)
[2016-10-21] MEDS: InsuLIN REG 1unit/0.01ml Soln (100units/ml) SC SCH ×4 (00:18→17:58)
[2016-10-21] MEDS: ALBUTEROL SULF 2.5 MG/0.5ML(0.5%) NEB SOLN NEB SCH ×5 (01:24→18:46)
[2016-10-21 05:34] VITALS: BP 92/49
[2016-10-21] MEDS: BUDESONIDE (INHALATION) 0.5 MG/2 ML NEB NEB SCH ×2 (06:09→18:47)
[2016-10-21 09:00] VITALS: BP 114/53
[2016-10-21] MEDS: Boost Glucose Control 8 Ounces PO SCH ×2 (09:45→17:58)
[2016-10-21] MEDS: DIGOXIN (250MCG/ML) 2 ML AMPULE IV SCH (10:00)
[2016-10-21] MEDS: METOPROLOL TARTRATE 50 MG TAB PO SCH ×2 (10:00→21:41)
[2016-10-21] MEDS: DOXYCYCLINE 100 MG TAB/CAP PO SCH ×2 (10:15→21:41)
[2016-10-21] MEDS: predniSONE 20 MG TAB PO SCH (10:15)
[2016-10-21] MEDS: AMIODARONE HCL 200 MG TAB PO SCH ×2 (10:15→21:40)
[2016-10-21] MEDS: ENOXAPARIN SOD 100 MG/1 ML SYRINGE SC SCH (10:15)
[2016-10-21] MEDS: APIXABAN 5 MG TAB PO SCH ×2 (10:15→21:41)
[2016-10-21] MEDS: SODIUM CHLOR 0.9% PF (SALINE LOCK) 10ML VIAL IV SCH ×2 (10:17→21:40)
[2016-10-21] MEDS: LORazepam 0.5 MG TAB PO PRN ×2 (11:04→19:54)
[2016-10-21 13:00] VITALS: BP 110/61
[2016-10-21] MEDS ORDERED: cefTRIAXone 1GM/50ML D5W 50 ML IV ONE (13:15)
[2016-10-21 14:23] VITALS: BP 112/63
[2016-10-21 17:00] VITALS: BP 127/63
[2016-10-21 22:00] VITALS: BP 150/71
[2016-10-22] MEDS: ACCU-CHEK COMFORT CURVE STRIP VI SCH ×3 (00:10→14:31)
[2016-10-22] MEDS: InsuLIN REG 1unit/0.01ml Soln (100units/ml) SC SCH ×3 (00:11→12:00)
[2016-10-22 05:09] VITALS: BP 135/66
[2016-10-22] MEDS: ALBUTEROL SULF 2.5 MG/0.5ML(0.5%) NEB SOLN NEB SCH ×3 (06:04→12:54)
[2016-10-22 07:39] VITALS: BP 124/71
[2016-10-22] MEDS ORDERED: cefTRIAXone 1GM/50ML D5W 50 ML IV SCH (09:00)
[2016-10-22] MEDS: DOXYCYCLINE 100 MG TAB/CAP PO SCH (09:52)
[2016-10-22] MEDS: APIXABAN 5 MG TAB PO SCH (09:53)
[2016-10-22] MEDS: predniSONE 20 MG TAB PO SCH (09:53)
[2016-10-22] MEDS: LORazepam 0.5 MG TAB PO PRN (09:53)
[2016-10-22] MEDS: Boost Glucose Control 8 Ounces PO SCH (09:54)
[2016-10-22] MEDS: SODIUM CHLOR 0.9% PF (SALINE LOCK) 10ML VIAL IV SCH (09:54)
[2016-10-22] MEDS: DIGOXIN (250MCG/ML) 2 ML AMPULE IV SCH (09:54)
[2016-10-22] MEDS ORDERED: METOPROLOL TARTRATE 50 MG TAB PO SCH (10:00)
[2016-10-22 11:26] VITALS: BP 133/78
[2016-10-22] MEDS: BUDESONIDE (INHALATION) 0.5 MG/2 ML NEB NEB SCH (12:54)
[2016-10-22 13:47] VITALS: BP 133/78
== END 2016-10-22 16:04 | disposition home or self-care (01) | DRG 208 ==
LOC: ER 02:26 → TELE 02:27 → ICU WEST 08:48 → TELE-EAST 10-16 06:30
PROVIDERS: ADMIT Nurse Practitioner; ATTEND Internal Medicine Pulmonary Disease
PROC: 5A1945Z Respiratory Ventilation, 24-96 Consecutive Hours (ICD-10-PCS; principal; 2016-10-12)
PROC: 0BH17EZ Insertion of Endotracheal Airway into Trachea, Via Natural or Artificial Opening (ICD-10-PCS; 2016-10-12)
PROC: 02HV33Z Insertion of Infusion Device into Superior Vena Cava, Percutaneous Approach (ICD-10-PCS; 2016-10-12)
PROC: 5A2204Z Restoration of Cardiac Rhythm, Single (ICD-10-PCS; 2016-10-12)
DX: I26.99 Other pulmonary embolism without acute cor pulmonale (principal); I21.4 Non-ST elevation (NSTEMI) myocardial infarction; J96.01 Acute respiratory failure with hypoxia; J18.9 Pneumonia, unspecified organism; N17.0 Acute kidney failure with tubular necrosis; E87.2 Acidosis; E44.1 Mild protein-calorie malnutrition; I47.1 Supraventricular tachycardia; J44.0 Chronic obstructive pulmonary disease with (acute) lower respiratory infection; N39.0 Urinary tract infection, site not specified; J45.901 Unspecified asthma with (acute) exacerbation; N18.3 Chronic kidney disease, stage 3 (moderate); K21.9 Gastro-esophageal reflux disease without esophagitis; I45.10 Unspecified right bundle-branch block; E66.01 Morbid (severe) obesity due to excess calories; E11.65 Type 2 diabetes mellitus with hyperglycemia; J20.9 Acute bronchitis, unspecified; E11.22 Type 2 diabetes mellitus with diabetic chronic kidney disease; E78.5 Hyperlipidemia, unspecified; F32.9 Major depressive disorder, single episode, unspecified; F41.9 Anxiety disorder, unspecified; I95.9 Hypotension, unspecified; I13.10 Hypertensive heart and chronic kidney disease without heart failure, with stage 1 through stage 4 chronic kidney disease, or unspecified chronic kidney disease; I27.2 Other secondary pulmonary hypertension; I48.0 Paroxysmal atrial fibrillation; Z82.49 Family history of ischemic heart disease and other diseases of the circulatory system; Z85.41 Personal history of malignant neoplasm of cervix uteri; Z85.43 Personal history of malignant neoplasm of ovary; Z68.33 Body mass index [BMI] 33.0-33.9, adult; Z87.891 Personal history of nicotine dependence; Z88.8 Allergy status to other drugs, medicaments and biological substances; Z90.710 Acquired absence of both cervix and uterus; Z90.89 Acquired absence of other organs; Z79.899 Other long term (current) drug therapy; Z80.8 Family history of malignant neoplasm of other organs or systems; Z71.3 Dietary counseling and surveillance
CPT/HCPCS: 31500; 36415; 36569; 36600; 71010; 71275; 80048; 80053; 80320; 81001; 82805; 82962; 83036; 83735; 83880; 84132; 84439; 84443; 84484; 85007; 85025; 85027; 85379; 85610; 85730; 87070; 87081; 87086; 87088; 87186; 87205; 92610; 92960; 93005; 93306; 93970; 94002; 94003; 94640; 96361; 96365; 96366; 96375; 99291; C9113; J0696; J1815; J2250; J2704; J3480; J3490; J7060

== ENCOUNTER 2016-11-19 11:04 | Emergency (ER) | payer OTHER, MEDICAID ==
[~2016-11-19] VITALS: Ht 165.1 cm; Wt 107.5 kg
[~2016-11-19 11:04] MED LIST: ALPR0.5T7 PO; ATOR20TA50 PO; GABA-339 PO; OXYB10GE TD; OXYB5SYP4 PO; PAR20T PO; PRO10T GT; TRAM50TA2 PO; WARF5TAB71 PO; ZOLP10TA6 PO
[2016-11-19] MEDS ORDERED: SODIUM CHLORIDE 0.9% 1,000 ML IV ONE (11:16)
[2016-11-19] MEDS ORDERED: LEVOFLOXACIN 500MG 100 ML IV ONE (11:30)
[2016-11-19] MEDS ORDERED: methylPREDNISolone SOD SUCC 125 MG/2 ML VL IV ONE (11:30)
[2016-11-19] MEDS ORDERED: ALBUTEROL SULF 2.5 MG/0.5ML(0.5%) NEB SOLN HHN ONE ×2 (11:30→18:30)
[2016-11-19] MEDS ORDERED: IPRATROPIUM BROM 0.5 MG/2.5ML INH SOL HHN ONE ×2 (11:30→18:30)
[2016-11-19 11:41] LABS: Basophils # (auto) 0.1 uL; Basophils % (auto) 0.4 % (0.0-2.0); CONDITION Y; Eosinophils # (auto) 0.1 uL; Eosinophils % (auto) 1.1 % (0.0-7.0); Hematocrit 41.4 % (36.0-46.0); Hemoglobin 13.7 g/dL (12.2-16.2); Lymphocytes # (auto) 0.6 uL; Lymphocytes % (auto) 4.5 % (10.0-50.0); Mean Corpuscular Hemoglobin 29.8 pg (28.0-32.0); Mean Corpuscular Volume 90.1 fL (80.0-100.0); Mean Platelet Volume 7.7 fL (7.4-10.4); Monocytes # (auto) 0.6 uL; Monocytes % (auto) 4.5 % (0.0-12.0); Neutrophils # (auto) 12.5 uL; Neutrophils % (auto) 89.5 % (37.0-80.0); Platelet Count (auto) 215 10^3/uL (140-450); Red Cell Distribution Width 15.8 % (11.6-16.0)
[2016-11-19 12:09] LABS: Potassium 4.4 mmol/L (3.5-5.1)
[2016-11-19 12:11] LABS: B-Type Natriuretic Peptide 232.27 pg/mL (0-100)
[2016-11-19 12:22] LABS: Albumin 2.7 g/dL (3.4-5.0); BUN/Creatinine Ratio 13.1
[2016-11-19 12:25] LABS: Bilirubin, Total 0.5 mg/dL (0.2-1.0); Calcium 8.4 mg/dL (8.5-10.1)
[2016-11-19 12:29] LABS: Lactic Acid w/Reflex 2.2 mmol/L (0.4-2.0)
[2016-11-19 12:32] LABS: Magnesium 1.7 mg/dL (1.6-2.6)
[2016-11-19 12:37] LABS: REFLEX LACTIC ACID YES OR NO YES
[2016-11-19] MEDS ORDERED: ALBUTEROL SULF 2.5 MG/0.5ML(0.5%) NEB SOLN ONE ×2 (13:07→18:25)
[2016-11-19] MEDS ORDERED: IPRATROPIUM BROM 0.5 MG/2.5ML INH SOL ONE ×2 (13:08→18:25)
[2016-11-19] MEDS ORDERED: ALBUTEROL SULF 2.5 MG/0.5ML(0.5%) NEB SOLN NEB ONE (13:15)
[2016-11-19] MEDS ORDERED: IPRATROPIUM BROM 0.5 MG/2.5ML INH SOL NEB ONE (13:15)
[2016-11-19 17:10] LABS: Base Excess 1.7 mmol/L (-2.0-2.0); Blood 02Sat 94.5 % (96-100); Blood COHb 0.9 % (0.5-1.5); Blood MetHb 0.3 % (0.0-1.5); HCO3 26.9 mmol/L (22-26.0); HHb 5.4 % (0.0-5.0); MODE NASAL CANNULA; O2Hb 93.4 % (94.0-97.0); PCO2 44.6 mmHg (35.0-45.0); PCO2(T) 44.6 mmHg (35.0-45.0); Sample Type Arterial; pH 7.399 (7.350-7.450)
[2016-11-19 19:56] VITALS: BP 133/64
== END 2016-11-19 20:07 | disposition short-term general hospital (02) ==
LOC: EDUNIT# 11:04 → ER 11:04
DX: J96.00 Acute respiratory failure, unspecified whether with hypoxia or hypercapnia (principal); E11.65 Type 2 diabetes mellitus with hyperglycemia; Z86.711 Personal history of pulmonary embolism; I48.91 Unspecified atrial fibrillation; I10 Essential (primary) hypertension; J44.9 Chronic obstructive pulmonary disease, unspecified; D72.829 Elevated white blood cell count, unspecified
CPT/HCPCS: 36415; 36600; 71010; 80053; 80162; 82805; 83605; 83735; 83880; 84484; 85025; 87040; 93005; 94644; 94645; 96365; 96366; 96375; 99285; J1956; J2930; J7030